=== PATIENT | female | born 1955 | race Caucasian/White ===

== ENCOUNTER → 2017-03-13 | Outpatient (CLI) | payer BC ==
[~2017-03-13] MED LIST: LISINOPRIL-HCTZ1 T14 PO; MOBIC PO; OMEPRAZOLE20 M1 PO; WAL ZYR D PO
--- NOTE | ~2017-03-13 | MY29 ---
[facility] A Service of [facility] RADIOLOGY TEXT RESULTS PATIENT: RUBINA ZABALA LOCATION: [facility] : 51 UNIT #: [id number] AGE: [address]: Ender Singh APRN SEX: F ORDER DR: [id number] [facility] [address] [place], [place] [address] [id number] O MR#: [id number] Acc #: [id number] NAME: RUBINA ZABALA : 1955 SEX: F STUDY DATE/TIME: 03/13/2017 7:50 UNIT: [facility] ROOM: STUDY DESCRIPTION: MY ABRIL SCREENING W/ CAD BILAT Attending Physician: Ender Singh A.P.R.N. Referring Physician: Ender Singh A.P.R.N. Ordering Physician: Ender Singh A.P.R.N. Primary Care Physician: Ender Singh A.P.R.N. MEDICAL IMAGING REPORT This report is preliminary unless electronic signature is present EXAM Digital screening mammogram, 03/13/2017 HISTORY 61-year-old woman positive family history, paternal aunt. Annual screening. COMPARISON Mammograms date to 03/23/2006 with most recent 03/10/2016. FINDINGS The digital imaging of each breast was completed utilizing screening protocol. Review includes FDA-approved CAD device. Breast parenchyma remains extremely dense with a diffuse small nodular parenchymal pattern again noted bilaterally. Occasional benign calcification noted in each breast. I see no suspicious mass characteristics. There are no interval occurring microcalcifications and no architectural deformity. Stable subareolar duct prominence is noted in each breast. IMPRESSION Benign mammogram. Extremely dense breast parenchyma again noted. Consider adding digital breast tomosynthesis to this patient's annual screening protocol. Patients over the age of 40 are entered into a reminder system with target due date for the next mammogram. A result letter will also be sent to the patient. BIRADS: 2 Benign Finding Dictated by... Dmitry Carter M.D. [facility] A Service of [facility] RADIOLOGY TEXT RESULTS PATIENT: RUBINA ZABALA LOCATION: [facility] : 51 UNIT #: [id number] AGE: [address]: Ender Singh APRN SEX: F ORDER DR: THIS IS AN ELECTRONICALLY VERIFIED REPORT Dmitry Carter M.D. at 03/13/2017 2:38 PM [facility] TD: 03/13/2017 11:27 JOB #: [id number] MEDICAL IMAGING REPORT Page 1 of 1 COPY
== END | disposition home or self-care (01) ==
LOC: CWCC 07:20
DX: Z12.31 Encounter for screening mammogram for malignant neoplasm of breast (principal); Z80.3 Family history of malignant neoplasm of breast
CPT/HCPCS: G0202